=== PATIENT | male | born 1990 | race Two or more races ===

== ENCOUNTER 2017-05-17 18:34 | Emergency (ER) | payer OTHER ==
[~2017-05-17] VITALS: Ht 167.6 cm; Wt 36.3 kg
[~2017-05-17 18:34] MED LIST: ALLOPURINOL100 MG PO; BACLOFEN20 MG PO; BENZTROPINE MESY1 MG PO; CLONAZEPAM0.5 MG; DIAZEPAM5 MG PO; RISPERDAL1 MG PO; RISPERDAL2 MG PO; TRILEPTAL300 MG PO
== END 2017-05-17 22:52 | disposition home or self-care (01) ==
LOC: ER 18:34
DX: E79.1 Lesch-Nyhan syndrome (principal); K59.00 Constipation, unspecified; R34 Anuria and oliguria

== ENCOUNTER 2019-05-21 10:40 | Inpatient (IN) | payer OTHER ==
[~2019-05-21] VITALS: Ht 160 cm; Wt 40.8 kg
[2019-05-21] MEDS ORDERED: ALLOPURINOL300 MG PO (11:48)
[2019-05-21] MEDS ORDERED: PREDNISOLONE5 G1 MC (11:50)
[2019-05-21] MEDS ORDERED: HYDROXYCHLOROQ200 MG PO (11:50)
[2019-05-21] MEDS ORDERED: TREXALL5 MG PO (11:52)
--- NOTE | 2019-05-21 12:01 | NUR ---
PACIENTE ALERTA, ORIENTADO X 3 , PACIENTE CON SYNDROME NO CAMINA EN SILLA DE SALEH MADRE REFIERE A TENIDO TEMPERATURA ELEVADA , TOS PRODUCTIVA, CON ZACK FLEMA LA TEMPERATURAELEVADA COMENZO KENYON EN IBRAHIMA MOMENTO NO PRESENTA TEMPERATURA ELEVADA, PRESENTA PULSO 150-148, SE REALIZA EKG, POR RITMO CARDIACO Y SE PRESENATA A .
--- NOTE | 2019-05-21 13:54 | NUR ---
SE ORIENTA A FAMILIAR DE PTE SOBRE PROCESO DE DAVID DE MUESTRAS, [facility]MINIST[facility]ACION DE [facility], SE COLOCA COLECTOR DE ORINA A PTE SE MANTIENE EN ESPERA DE LA MISMA. SE COLOCA PTE EN BRIONNA EN ESPERA DE RESULTADOS DE LAB.
[2019-06-01] MEDS ORDERED: RISPERDAL1 MG PO (14:39)
[2019-06-01] MEDS ORDERED: CLONAZEPAM1 MG PO (14:39)
[2019-06-01] MEDS ORDERED: BACLOFEN10 MG PO (14:39)
[2019-06-01] MEDS ORDERED: ZYLOPRIM100 M1 PO (14:39)
[2019-06-01] MEDS ORDERED: PREDNISONE 5MG PO (14:39)
[2019-06-01] MEDS ORDERED: INTESTINEX680 M1 PO (14:39)
[2019-06-01] MEDS ORDERED: FOLIC ACID1 MG PO (14:39)
[2019-06-01] MEDS ORDERED: VITAMIN B-121000 MCG PO (14:39)
== END 2019-06-01 15:00 | disposition home or self-care (01) | DRG 202 ==
LOC: ER 10:40 → SEC-K 18:06 → MEDJ 18:06
PROVIDERS: ADMIT Internal Medicine
PROC: 3E0F7GC Introduction of Other Therapeutic Substance into Respiratory Tract, Via Natural or Artificial Opening (ICD-10-PCS; 2019-05-21)
PROC: 30233N1 Transfusion of Nonautologous Red Blood Cells into Peripheral Vein, Percutaneous Approach (ICD-10-PCS; principal; 2019-05-22)
PROC: 8E0ZXY6 Isolation (ICD-10-PCS; 2019-05-22)
PROC: 0T9B70Z Drainage of Bladder with Drainage Device, Via Natural or Artificial Opening (ICD-10-PCS; 2019-05-22)
PROC: 02HV33Z Insertion of Infusion Device into Superior Vena Cava, Percutaneous Approach (ICD-10-PCS; 2019-05-23)
PROC: BW21Y0Z Computerized Tomography (CT Scan) of Abdomen and Pelvis using Other Contrast, Unenhanced and Enhanced (ICD-10-PCS; 2019-05-24)
DX: J20.0 Acute bronchitis due to Mycoplasma pneumoniae (principal); A41.9 Sepsis, unspecified organism; R65.20 Severe sepsis without septic shock; J18.1 Lobar pneumonia, unspecified organism; E79.1 Lesch-Nyhan syndrome; Q61.5 Medullary cystic kidney; K92.1 Melena; J91.8 Pleural effusion in other conditions classified elsewhere; K56.41 Fecal impaction; N47.2 Paraphimosis; I87.2 Venous insufficiency (chronic) (peripheral); E86.0 Dehydration; M62.81 Muscle weakness (generalized); E87.8 Other disorders of electrolyte and fluid balance, not elsewhere classified; R50.81 Fever presenting with conditions classified elsewhere; D70.2 Other drug-induced agranulocytosis; R31.29 Other microscopic hematuria; Z74.01 Bed confinement status

== ENCOUNTER 2019-08-13 15:13 | Inpatient (IN) | payer OTHER ==
[~2019-08-13] VITALS: Ht 160 cm; Wt 40.8 kg
[~2019-08-13 15:13] MED LIST changes: +ALLOPURINOL300 MG PO; +BACLOFEN10 MG PO; +CLONAZEPAM1 MG PO; +FOLIC ACID1 MG PO; +HYDROXYCHLOROQ200 MG PO; +INTESTINEX680 M1 PO; +PREDNISOLONE5 G1 MC; +PREDNISONE 5MG PO; +TREXALL5 MG PO; +VITAMIN B-121000 MCG PO; +ZYLOPRIM100 M1 PO
== END 2019-08-20 14:28 | disposition home or self-care (01) | DRG 812 ==
LOC: ER 15:13 → MEDJ 21:20 → SURG 21:20 → MEDJ 08-15 07:14 → SURH 08-17 11:48 → MEDJ 08-17 12:10 → SURH 08-17 20:00
PROVIDERS: ADMIT Internal Medicine
PROC: BW40ZZZ Ultrasonography of Abdomen (ICD-10-PCS; principal; 2019-08-13)
PROC: 4A033R1 Measurement of Arterial Saturation, Peripheral, Percutaneous Approach (ICD-10-PCS; 2019-08-13)
PROC: 30233N1 Transfusion of Nonautologous Red Blood Cells into Peripheral Vein, Percutaneous Approach (ICD-10-PCS; 2019-08-14)
PROC: 4A12X4Z Monitoring of Cardiac Electrical Activity, External Approach (ICD-10-PCS; 2019-08-14)
PROC: 05HY33Z Insertion of Infusion Device into Upper Vein, Percutaneous Approach (ICD-10-PCS; 2019-08-14)
DX: D53.9 Nutritional anemia, unspecified (principal); N39.0 Urinary tract infection, site not specified; E79.1 Lesch-Nyhan syndrome; Z20.828 Contact with and (suspected) exposure to other viral communicable diseases; Z74.01 Bed confinement status

== ENCOUNTER 2019-09-20 10:57 | Emergency (ER) | payer OTHER ==
[~2019-09-20] VITALS: Ht 157.5 cm; Wt 43.1 kg
[2019-09-20] MEDS ORDERED: CLONAZEPAM1 MG (11:06)
== END 2019-09-21 00:25 | disposition home or self-care (01) ==
LOC: ER 10:57
DX: K56.41 Fecal impaction (principal)